=== PATIENT | female | born 1975 | race Caucasian/White ===

== ENCOUNTER 2017-10-22 16:18 | Emergency (ER) | payer MEDICAID ==
[~2017-10-22] VITALS: Ht 167.6 cm; Wt 90.7 kg
[~2017-10-22 16:18] MED LIST: GABAPENTIN600 MG PO; GEODON80 MG NG; IBUPROFEN200 MG PO; MELOXICAM15 MG PO; ORTHO-CYCLEN1 EACH PO; PROZAC10 MG PO; TEGRETOL XR100 MG PO; ULTRAM50 MG PO
[2017-10-22] MEDS ORDERED: CILOXAN5 ML OD (16:47)
== END 2017-10-22 17:00 | disposition home or self-care (01) ==
LOC: ED 16:18
DX: H10.9 Unspecified conjunctivitis (principal); H15.001 Unspecified scleritis, right eye; F41.9 Anxiety disorder, unspecified; F31.9 Bipolar disorder, unspecified; Z87.891 Personal history of nicotine dependence; Z88.5 Allergy status to narcotic agent; Z79.899 Other long term (current) drug therapy
CPT/HCPCS: 99283

== ENCOUNTER 2017-10-26 12:47 | Emergency (ER) | payer MEDICAID ==
[~2017-10-26] VITALS: Ht 167.6 cm; Wt 90.7 kg
[~2017-10-26 12:47] MED LIST changes: +CILOXAN5 ML OD
== END 2017-10-26 13:02 | disposition home or self-care (01) ==
LOC: ED 12:47
DX: S51.811A Laceration without foreign body of right forearm, initial encounter (principal); W26.0XXA Contact with knife, initial encounter

== ENCOUNTER 2017-11-25 07:05 | Emergency (ER) | payer MEDICAID ==
[~2017-11-25] VITALS: Ht 167.6 cm; Wt 90.7 kg
== END 2017-11-25 09:40 | disposition home or self-care (01) ==
LOC: ED 07:05
PROC: 2W3CX1Z Immobilization of Right Lower Arm using Splint (ICD-10-PCS; principal; 2017-11-25)
DX: G56.01 Carpal tunnel syndrome, right upper limb (principal); M65.311 Trigger thumb, right thumb; Y04.8XXA Assault by other bodily force, initial encounter; F41.9 Anxiety disorder, unspecified; F31.9 Bipolar disorder, unspecified; Z88.5 Allergy status to narcotic agent; Z79.899 Other long term (current) drug therapy
CPT/HCPCS: 29125; 73130; 99283

== ENCOUNTER → 2018-02-15 | Emergency (ER) | payer OTHER ==
[~2018-02-15] VITALS: Ht 167.6 cm; Wt 90.7 kg
[~2018-02-15] MED LIST changes: +FLUOXETINE HCL60 MG PO; +KETOROLAC TROME10 MG PO; +TEGRETOL200 MG PO
--- OUTSIDE RECORDS SUMMARY | ~2018-02-15 | XMS | Clinical Summary ---
Demographics + + + | Address | [address] | | | [place] [address] | + + + | Home Phone | | + + + | Preferred Language | Unknown | + + + | Marital Status | Single | + + + | Episcopalian Affiliation | Unknown | + + + | Race | Unknown | + + + | Ethnic Group | Unknown | + + + Author + + + | Author | [facility] | | | and [place] | + + + | Organization | [facility] | | | and [place] | + + + | Address | Unknown | + + + | Phone | Unavailable | + + + Support + + +---------+ + | Name | Relationship | Address | Phone | + + +---------+ + | Dinora Blake | [place]RAD[place] | Unknown | | + + +---------+ + Care Team Providers + +------+ + | Care Registered Nurse Practitioner Name | Role | Phone | + +------+ + | Carine Clayton MD | PP | Unavailable | + +------+ + Allergies + + + + + + | Active Allergy | Reactions | Severity | Noted | Comments | | | | | Date | | + + + + + + | Codeine | Nausea And Vomiting, | Low | 11/24/19 | | | | Rash | | 17 | | + + + + + + Current Medications + + +-------+---------+------+------+-------+ | Prescription | Sig. | Disp. | Refills | Star | End | Statu | | | | | | t | Date | s | | | | | | Date | | | + + +-------+---------+------+------+-------+ | carBAMazepine | Take 200 mg by mouth | | | | | Activ | | (TEGRETOL) 200 mg | 2 times daily. | | | | | e | | tablet | | | | | | | + + +-------+---------+------+------+-------+ | FLUoxetine HCl 60 | Take 60 mg by mouth | | | | | Activ | | MG TABS | Daily. | | | | | e | + + +-------+---------+------+------+-------+ | ziprasidone | Take 80 mg by mouth | | | | | Activ | | (GEODON) 80 MG | 2 times daily (with | | | | | e | | capsule | breakfast & dinner). | | | | | | + + +-------+---------+------+------+-------+ | Norgestimate-Eth | Take 1 tablet by | | | | | Activ | | Estradiol | mouth Daily. | | | | | e | | (MONO-LINYAH PO) | | | | | | | + + +-------+---------+------+------+-------+ | GABAPENTIN PO | Take 200 mg by mouth | | | | | Activ | | | 2 times daily. | | | | | e | + + +-------+---------+------+------+-------+ Active Problems Not on file Family History [...] on file | | + + + Last Filed Vital Signs + [...] Vaccine: Influenza | | | | | (#1) | 8 | | | + + + + + Results Not on filefrom Last 3 Months Insurance + +--------+ +--------+ +---------+ | Payer | Benefi | Subscriber | Type | Phone | Address | | | t Plan | ID | | | | | | / | | | | | | | Group | | | | | + +--------+ +--------+ +---------+ | [employer] | MODA | [id number] | Medica | [phone] | | MEDICAID HMO | HEALTH | | id | [id number] | | | | [place] | | | | | | [place] | | | | | + +--------+ +--------+ +---------+ + +--------+ +--------+ + + | Guarantor Name | Accoun | Relation to | Date | Phone | Billing Address | | | t Type | Patient | of | | | | | | | | | | + +--------+ +--------+ + + | MAX ALEXANDER | Person | Self [birth year] Home: | [address] | | [place] | al/Fam | | 1974 | [phone] | [place] | | | carmen | | [phone] | + +--------+ +--------+ + +
--- OUTSIDE RECORDS SUMMARY | ~2018-02-15 | XMS | Clinical Summary ---
Demographics + + + | Address | [address] | | | [place] [address] | + + + | Home Phone | | + + + | Preferred Language | Unknown | + + + | Marital Status | Single | + + + | Methodist Affiliation | Unknown | + + + | Race | Unknown | + + + | Ethnic Group | Unknown | + + + Author + + + | Author | [facility] | | | and [place] | + + + | Organization | [facility] | | | and [place] [...] Team Providers + +------+ + | Care Tableau Lead Name | Role | Phone | + [...] | [employer] | MODA | [id number] | Medica | [phone] | | MEDICAID HMO | HEALTH [...] [place] | al/Fam | | 1974 | [phone] | [place] | | | carmen | | | [phone] | + +--------+ +--------+ + +
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
== END ==
LOC: ED 14:17
DX: S46.911A Strain of unspecified muscle, fascia and tendon at shoulder and upper arm level, right arm, initial encounter (principal); Z88.5 Allergy status to narcotic agent; Z79.899 Other long term (current) drug therapy; W22.8XXA Striking against or struck by other objects, initial encounter
CPT/HCPCS: 73030; 96372; 99283; J1885

== ENCOUNTER 2018-10-11 11:49 | Emergency (ER) | payer OTHER ==
[~2018-10-11] VITALS: Ht 167.6 cm; Wt 90.7 kg
--- OUTSIDE RECORDS SUMMARY | ~2018-10-11 | XMS | Clinical Summary ---
Demographics + + + | Address | [address] | | | [place] [address] | + + + | Home Phone | | + + + | Preferred Language | Unknown | + + + | Marital Status | Single | + + + | Orthodoxy Affiliation | Unknown | + + + | Race | Unknown | + + + | Ethnic Group | Unknown | + + + Author + + + | Author | [facility] | | | and [place] | + + + | Organization | [facility] | | | and [place] | + + + | Address | Unknown | + + + | Phone | Unavailable | + + + Support + + +---------+ + | Name | Relationship | Address | Phone | + + +---------+ + | Dinora Blake | ECON | Unknown | | + + +---------+ + Care Team Providers + +------+ + | Care Pharmacist In Charge Owner Name | Role | Phone | + +------+ + | Karime Morejon MD | PP | | + +------+ + Allergies + + + + + + | Active Allergy | Reactions | Severity | Noted | Comments | | | | | Date | | + + + + + + | Codeine | Nausea And Vomiting, | Low | 11/24/19 | | | | Rash | | 17 | | + + + + + + Medications + + + +---------+------+------+-------+ | Medication | Sig | Dispensed | Refills | Star | End | Statu | | | | | | t | Date | s | | | | | | Date | | | + + + +---------+------+------+-------+ | carBAMazepine | Take 200 mg by mouth | | 0 | | | Activ | | (TEGRETOL) 200 mg | 2 times daily. | | | | | e | | tablet | | | | | | | + + + +---------+------+------+-------+ | FLUoxetine HCl 60 | Take 60 mg by mouth | | 0 | | | Activ | | MG TABS | Daily. | | | | | e | + + + +---------+------+------+-------+ | ziprasidone | Take 80 mg by mouth | | 0 | | | Activ | | (GEODON) 80 MG | 2 times daily (with | | | | | e | | capsule | breakfast & dinner). | | | | | | + + + +---------+------+------+-------+ | Norgestimate-Eth | Take 1 tablet by | | 0 | | | Activ | | Estradiol | mouth Daily. | | | | | e | | (MONO-LINYAH PO) | | | | | | | + + + +---------+------+------+-------+ | GABAPENTIN PO | Take 200 mg by mouth | | 0 | | | Activ | | | 2 times daily. | | | | | e | + + + +---------+------+------+-------+ Active Problems Not on file Family History + + +------+ + | Medical History | Relation | Name | Comments | + + +------+ + | Alcohol abuse | Brother | | | + + +------+ + | Alcohol abuse | Father | | | + + +------+ + | Other (see comment) | Father | | Bursitis | + + +------+ + | Lung cancer | Maternal | | | | | Grandmoth | | | | | er | | | + + +------+ + | Cancer | Mother | | | + + +------+ + + +------+--------+ + | Relation | Name | Status | Comments | + +------+--------+ + | Brother | | | | + +------+--------+ + | Daughter | | Alive | | + +------+--------+ + | Daughter | | Alive | | + +------+--------+ + | Daughter | | Alive | | + +------+--------+ + | Father | | | | + +------+--------+ + | Maternal Grandmother | | | | + +------+--------+ + | Mother | | | | + +------+--------+ + | Son | | Alive | | + +------+--------+ + Social History + +-------+ +--------+------+ | Tobacco Use | Types | Packs/Day | Years | Date | | | | | Used | | + +-------+ +--------+------+ | Current Every Day | | 0.5 | 10 | | | Smoker | | | | | + +-------+ +--------+------+ + +---+---+---+ | Smokeless Tobacco: | | | | | Never Used | | | | + +---+---+---+ + + +---------+ + | Alcohol Use | Drinks/We | oz/Week | Comments | | | ek | | | + + +---------+ + | Yes | | | Frequently | + + +---------+ + + + + | Sex Assigned at | Date Recorded | | | | + + + | Not on file | | + + + + + + + | Job Start Date | Occupation | Industry | + + + + | Not on file | Not on file | Not on file | + + + + + + + + | Travel History | Travel Start | Travel End | + + + + + + | No recent travel history available. | + + Last Filed Vital Signs + + + + | Vital Sign | Reading | Time Taken | + + + + | Blood Pressure | 106/69 | 11/27/2016933 PDT | + + + + | Pulse | 71 | 11/27/2016933 PDT | + + + + | Temperature | - | - | + + + + | Respiratory Rate | - | - | + + + + | Oxygen Saturation | - | - | + + + + | Inhaled Oxygen | - | - | | Concentration | | | + + + + | Weight | 107.6 kg (237 lb 3.2 | 11/27/2016933 PDT | | | oz) | | + + + + | Height | 167.6 cm (5' 6") | 11/27/2016933 PDT | + + + + | Body Mass Index | 38.29 | 11/27/2016933 PDT | + + + + Plan of Treatment + + + + + | Health Maintenance | Due Date | Last Done | Comments | + + + + + | Vaccine: | | | | | Dtap/Tdap/Td (1 - | 6 | | | | Tdap) | | | | + + + + + | Vaccine: | | | | | Pneumococcal 19-64 | 6 | | | | (PPSV23 only) Medium | | | | | Risk (1 of 1 - | | | | | PPSV23) | | | | + + + + + | Cervical Cancer | | | | | Screening (Pap) | 7 | | | + + + + + | Vaccine: Influenza | | | | | (Season Ended) | 9 | | | + + + + + Results Not on filefrom Last 3 Months Advance Directives Patient has advance care planning documents on file. For more information, please contact:[facility] [place] [address]
--- OUTSIDE RECORDS SUMMARY | ~2018-10-11 | XMS | Clinical Summary ---
Demographics + + + | Address | [address] | | | [place] [address] | + + + | Home Phone | | + + + | Preferred Language | Unknown | + + + | Marital Status | Single | + + + | Samaritan Affiliation | Unknown | + + + | Race | Unknown | + + + | Ethnic Group | Unknown | + + + Author + + + | Author | [facility] | | | and [place] | + + + | Organization | [facility] | | | and [place] | [...] Team Providers + +------+ + | Care Flue Dust Laborer Name | Role | Phone | + [...] documents on file. For more information, please contact:[facility] [place] [address]
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
[2018-10-11] MEDS ORDERED: CITALOPRAM HBR40 MG PO (12:12)
== END 2018-10-11 16:17 | disposition home or self-care (01) ==
LOC: ED 11:49
DX: S20.222A Contusion of left back wall of thorax, initial encounter (principal); S40.022A Contusion of left upper arm, initial encounter; S40.021A Contusion of right upper arm, initial encounter; S05.12XA Contusion of eyeball and orbital tissues, left eye, initial encounter; F41.9 Anxiety disorder, unspecified; F31.9 Bipolar disorder, unspecified; Z79.899 Other long term (current) drug therapy; Z88.5 Allergy status to narcotic agent; Y04.2XXA Assault by strike against or bumped into by another person, initial encounter
CPT/HCPCS: 70450; 70486; 71046; 72170; 80053; 84703; 85025; 96361; 96374; 99284-25; J1885; J7030

== ENCOUNTER 2019-01-02 20:24 | Emergency (ER) | payer OTHER ==
[~2019-01-02] VITALS: Ht 167.6 cm; Wt 90.7 kg
[~2019-01-02 20:24] MED LIST changes: +CITALOPRAM HBR40 MG PO; -GABAPENTIN600 MG PO; +NEURONTIN800 MG PO; +TRAZODONE HCL50 MG PO
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
== END 2019-01-02 23:59 | disposition home or self-care (01) ==
LOC: ED 20:24
PROC: 2W3JX1Z Immobilization of Right Finger using Splint (ICD-10-PCS; principal; 2019-01-02)
DX: S63.601A Unspecified sprain of right thumb, initial encounter (principal); F41.9 Anxiety disorder, unspecified; F32.9 Major depressive disorder, single episode, unspecified; F31.9 Bipolar disorder, unspecified; Z88.5 Allergy status to narcotic agent; Z79.899 Other long term (current) drug therapy; Y04.0XXA Assault by unarmed brawl or fight, initial encounter
CPT/HCPCS: 29130; 73090; 73130; 99284-25; J3486

== ENCOUNTER 2019-04-19 22:30 | Emergency (ER) | payer OTHER ==
[~2019-04-19] VITALS: Ht 167.6 cm; Wt 90.7 kg
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
[2019-04-19] MEDS ORDERED: GEODON80 MG NG (22:46)
== END 2019-04-19 23:08 | disposition home or self-care (01) ==
LOC: ED 22:30
DX: J02.9 Acute pharyngitis, unspecified (principal); F31.9 Bipolar disorder, unspecified; Z87.891 Personal history of nicotine dependence; Z88.5 Allergy status to narcotic agent; Z79.899 Other long term (current) drug therapy
CPT/HCPCS: 99282

== ENCOUNTER 2021-11-25 13:22 | Emergency (ER) | payer OTHER ==
[~2021-11-25] VITALS: Ht 167.6 cm; Wt 70.3 kg
[~2021-11-25 13:22] MED LIST changes: +ADVIL LIQUI-GE200 MG PO; +BENADRYL25 MG PO; +CELECOXIB200 MG PO; +CELEXA40 MG PO; +DERMACINRX5000 UNIT PO; +GABAPENTIN800 MG PO; +HYDROCODON-ACE1 EA11 PO; +IBUPROFEN800 MG PO; +PERSANTINE PO; +PROZAC20 MG PO; +ROBAXIN-750750 MG
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
[2021-11-25] MEDS ORDERED: DOXYCYCLINE HY100 MG PO (16:37)
== END 2021-11-25 16:50 | disposition home or self-care (01) ==
LOC: ED 13:22
DX: Z04.41 Encounter for examination and observation following alleged adult rape (principal); R07.9 Chest pain, unspecified; R10.2 Pelvic and perineal pain; K62.89 Other specified diseases of anus and rectum; Z88.5 Allergy status to narcotic agent; Z87.891 Personal history of nicotine dependence
CPT/HCPCS: 96372; 99284; A9270; J0696